=== PATIENT | female | born 1965 | race Caucasian/White ===

== ENCOUNTER 2021-05-04 19:39 | Emergency (ER) | payer OTHER ==
[2021-05-04 20:26] LABS: ALBUMIN 3.9 g/dL (3.4-5.0); BILIRUBIN - TOTAL 0.3 mg/dL (0.2-1.0); BUN/CREAT RATIO (CALC) 12.4 RATIO; CREATININE 0.89 mg/dL (0.51-0.95); GLOBULIN (CALCULATION) 3.3 g/dL; POTASSIUM 3.1 mmol/L (3.5-5.1); TOTAL PROTEIN 7.2 g/dL (6.4-8.2)
[2021-05-04 20:51] LABS: BASOPHIL 0.5 % (0-2); EOSINOPHIL 2.2 % (0-5); HCT 31.2 % (37.0-47.0); HGB 8.8 g/dl (12.5-16.0); LYMPHOCYTE 36.3 % (15-48); MCH 20.4 pg (25.0-31.0); MCHC 28.2 g/dL (32.0-36.0); MCV 72.4 fL (78.0-100.0); MONOCYTE 7.8 % (0-12); MPV 9.7 fL (6.0-9.5); NEUTROPHIL 52.5 % (41-80); NRBC 0; PLT 515 K/uL (150-400); RBC 4.31 M/uL (4.20-5.40); RDW 17.2 % (11.5-14.0); WBC 10.1 K/uL (4.0-10.5)
[2021-05-05 02:30] LABS: LACTIC ACID 0.4 mmol/L (0.4-1.9)
[2021-05-05 03:02] LABS: C-REACTIVE PROTEIN < 0.20 mg/dL (<=0.90)
[2021-05-05 04:10] LABS: FT4 (FREE T4) 1.3 ng/dL (0.76-1.46)
[2021-05-05] MEDS ORDERED: DIAZEPAM 5MG TAB5 MG PO (06:38)
[2021-05-05] MEDS ORDERED: VIBRAMYCIN100 MG PO (06:38)
[2021-05-05] MEDS ORDERED: MEDROL 4MG DOSEP4 MG PO (06:38)
== END 2021-05-05 07:50 | disposition home or self-care (01) ==
LOC: FER 19:39
PROVIDERS: Emergency Medicine; Emergency Medicine Emergency Medical Services
DX: U07.1 COVID-19 (principal); J44.1 Chronic obstructive pulmonary disease with (acute) exacerbation; I10 Essential (primary) hypertension; F17.200 Nicotine dependence, unspecified, uncomplicated; Z88.0 Allergy status to penicillin; Z23 Encounter for immunization
CPT/HCPCS: 36415; 36600; 71275; 80053; 82728; 82803; 83605; 83880; 84439; 84443; 84484; 85025; 86140; 87040; 93005; C9399; J1100; J3475; J7050; Q0244; Q9967; U0002